=== PATIENT | male | born 1985 | race African-American/Black ===

== ENCOUNTER 2020-03-06 17:16 | Emergency (ER) | payer OTHER ==
--- NOTE | 2020-03-06 17:41 | ED Physician Documentation ---
History of Present Illness - Stated complaint Stated Complaint: HEADACHE - Chief complaint Chief Complaint: Neuro - History obtained from History obtained from: Patient - Additonal information Additional information: 34-year-old gentleman, active duty in the [employer]. He presents today with muscle aches, fatigue, mild headache. He was referred from [facility] for coronavirus testing. He denies shortness of breath cough or other respiratory symptoms. No fevers. Review of Systems Constitutional: reports: Myalgias, Fatigue Throat: denies: Sore throat Respiratory: denies: Dyspnea, Cough GI: denies: Vomiting, Diarrhea PD PAST MEDICAL HISTORY - Allergies Allergies/Adverse Reactions: Allergies Allergy/AdvReac Type Severity Reaction Status Date / Time No Known Drug Allergies Allergy Verified 03/06/20 17:36 PD ED PE NORMAL - Vitals Vital signs reviewed: Yes - General General: Alert and oriented X 3, No acute distress - Neck Neck: Supple, no meningeal sign, No bony TTP - Back Back: No CVA TTP, No spinal TTP - Derm Derm: Normal color, Warm and dry - Extremities Extremities: No edema, No calf tenderness / cord - Neuro Neuro: Alert and oriented X 3, Normal speech Results - Vitals Vitals: Vital Signs - 24 hr 03/06/20 17:28 Temperature 36.4 C L Heart Rate 58 L Respiratory 18 Rate Blood Pressure 138/80 H O2 Saturation 100 Oxygen O2 Source Room air PD MEDICAL DECISION MAKING - ED course ED course: 34-year-old gentleman who presents with seemingly mild viral syndrome was sent in from [facility] for coronavirus testing. Departure - Departure Disposition: 01 Home, Self Care Clinical Impression: Viral syndrome Condition: Good Record reviewed to determine appropriate education?: Yes Instructions: ED Viral Syndrome Comments: You have a Covid test pending. You need to self quarantine until the result is done and negative. Do not leave your house. Do not get near anybody. The results should be done in 48 to 72 hours. We will call with a positive result, the fastest way to get a negative result for confirmation though is to go to the hospital website at [email or web address], click on the my [facility] tab and sign up for the patient portal. Forms: Activity restrictions
[2020-03-06 18:02] VITALS: BP 126/86
== END 2020-03-06 18:09 | disposition home or self-care (01) ==
LOC: ED 17:16
DX: B34.9 Viral infection, unspecified (principal); Z20.828 Contact with and (suspected) exposure to other viral communicable diseases
CPT/HCPCS: 99282; 99283